=== PATIENT | male | born 1970 | race Caucasian/White ===

== ENCOUNTER → 2017-11-06 | Outpatient (CLI) | payer BC ==
[2017-11-06 07:56] LABS: ALT 49 U/L (21-72); AST 25 U/L (17-59); Cholesterol 180 mg/dL (<200); Creatine Kinase 104 U/L (55-170); HDL Cholesterol 55 mg/dL (40-60); LDL Cholesterol,Calculated 88 mg/dL (0-99); Triglycerides 187 mg/dL (<150)
== END | disposition home or self-care (01) ==
LOC: LABWHC1 07:13
PROVIDERS: ATTEND Internal Medicine Interventional Cardiology
DX: E78.2 Mixed hyperlipidemia (principal)
CPT/HCPCS: 36415; 80061; 82550; 84450; 84460

== ENCOUNTER → 2018-01-02 | Outpatient (CLI) | payer BC ==
[2018-01-02 09:52] LABS: HCT 43.5 % (39.0-53.0); MCH 29.9 pg (25.0-35.0); MCHC 34.5 g/dL (31.0-37.0); MCV 86.7 fL (80.0-100.0); Mean Platelet Volume 9.5; Platelet Count 179 k/uL (150-450); RBC 5.01 m/uL (4.30-5.90); RDW 12.7 % (11.5-15.5); WBC 8.2 k/uL (3.8-10.6)
[2018-01-02 10:02] LABS: Cholesterol 177 mg/dL (<200); HDL Cholesterol 60 mg/dL (40-60); LDL Cholesterol,Calculated 94 mg/dL (0-99); Triglycerides 115 mg/dL (<150)
== END | disposition home or self-care (01) ==
LOC: LABWHC1 09:12
PROVIDERS: ATTEND Family Medicine
DX: D50.8 Other iron deficiency anemias (principal); E78.00 Pure hypercholesterolemia, unspecified
CPT/HCPCS: 36415; 80061; 85027